=== PATIENT | female | born 1970 | race Caucasian/White ===

== ENCOUNTER → 2016-03-09 | Outpatient (CLI) | payer BC, OTHER ==
[~2016-03-09] MED LIST: ACET-1256 PO; CITA20TA9 PO; HOME1TAB18 PO; IBUP-1050 PO; JET ALERT PO; LEVO25TA PO; MELO15TA10 PO; MULT-506 PO; RXC5 PO; TRAM-10 PO
[2016-03-09 14:13] LABS: BASO % 0.6 %; BASO ABS # 0.06 K/uL (0-0.2); COMPLETE YES; EOS % 2.2 %; HEMATOCRIT 43.8 % (37-47); IG% 0.8 %; LYMPH % 27.2 %; LYMPH ABS # 2.85 K/uL (1.2-3.4); MEAN CELL VOLUME 93.2 fL (80-100); MEAN CORPUSCULAR HEMOGLOBIN 32.6 pg (25-34); MEAN CORPUSCULAR HGB CONC 34.9 g/dl (32-36); MEAN PLATELET VOLUME 9.5 fL (7.4-10.4); MONO % 11.9 %; NEUT % 57.3 %; PLATELET COUNT 297 K/uL (130-400); WHITE BLOOD COUNT 10.49 K/uL (4.8-10.8)
[2016-03-09 14:22] LABS: ALT/SGPT 27 U/L (12-78); BLOOD UREA NITROGEN 18 mg/dl (7-18); CALCIUM 8.8 mg/dl (8.5-10.1); CARBON DIOXIDE 25 mmol/L (21-32); CHLORIDE 104 mmol/L (98-107); CHOLESTEROL 197 mg/dl (0-200); CREATININE 0.86 mg/dl (0.60-1.20); GLUCOSE 107 mg/dl (70-99); SODIUM 138 mmol/L (136-145); TRIGLYCERIDES 219 mg/dl (0-150); VERY LOW DENSITY LIPOPROT CALC 44 mg/dl
[2016-03-09 14:31] LABS: ALB/GLOB RATIO 0.9 (0.9-2); ALKALINE PHOSPHATASE 77 U/L (45-117); AST/SGOT 14 U/L (15-37); CHOLESTEROL/HDL RATIO 4.2; HDL CHOLESTEROL 47 mg/dl; LDL CHOLESTEROL CALCULATED 106 mg/dl
== END | disposition home or self-care (01) ==
LOC: C.LABSPEC 13:32
PROVIDERS: ATTEND Family Medicine
DX: E78.2 Mixed hyperlipidemia (principal); F39 Unspecified mood [affective] disorder; R45.4 Irritability and anger

== ENCOUNTER → 2016-04-06 | Outpatient (CLI) | payer OTHER ==
[2016-04-06 13:36] LABS: THYROID STIMULATING HORMONE 2.59 uIu/ml (0.300-4.500)
== END | disposition home or self-care (01) ==
LOC: C.LABSPEC 12:50
PROVIDERS: ATTEND Family Medicine
DX: E03.9 Hypothyroidism, unspecified (principal)

== ENCOUNTER → 2016-05-26 | Outpatient (CLI) | payer OTHER ==
--- NOTE | 2016-05-26 16:29 | DIAGNOSTIC IMAGING REPORT ---
CHEST 2 VIEWS ROUTINE CLINICAL HISTORY: M54.16 cough. Preoperative evaluation COMPARISON STUDY: No previous studies for comparison. FINDINGS: The bones soft tissues and hemidiaphragms are normal. The cardiomediastinal silhouette is normal. The lungs are clear. The pulmonary vasculature is normal. IMPRESSION: Negative chest. Electronically signed by: Lorenzo Sommer M.D. 05/26/2016 4:27 PM Dictated Date/Time: 05/26/2016 4:26 PM
[2016-05-26 16:56] LABS: BASO % 0.7 %; BASO ABS # 0.05 K/uL (0-0.2); COMPLETE YES; EOS % 4.8 %; HEMATOCRIT 39.5 % (37-47); IG% 0.3 %; LYMPH % 28.6 %; LYMPH ABS # 2.13 K/uL (1.2-3.4); MEAN CELL VOLUME 91.4 fL (80-100); MEAN CORPUSCULAR HEMOGLOBIN 31.9 pg (25-34); MEAN CORPUSCULAR HGB CONC 34.9 g/dl (32-36); MONO % 11.1 %; NEUT % 54.5 %; PLATELET COUNT 301 K/uL (130-400); RED BLOOD COUNT 4.32 M/uL (4.2-5.4); WHITE BLOOD COUNT 7.46 K/uL (4.8-10.8)
[2016-05-26 17:08] LABS: URINE APPEARANCE CLOUDY (CLEAR); URINE BILIRUBIN NEG (NEG); URINE COLOR YELLOW; URINE EPITHELIAL CELL AUTO >30 /lpf (0-5); URINE NITRITE NEG (NEG); URINE PH 5.5 (4.5-7.5); URINE SPECIFIC GRAVITY 1.024 (1.000-1.030); UROBILINOGEN NEG (NEG)
[2016-05-26 17:12] LABS: MANUAL MICROSCOPIC REQUIRED? NO; REVIEW REQ? NO
[2016-05-26 17:23] LABS: BLOOD UREA NITROGEN 16 mg/dl (7-18); BUN/CREATININE RATIO 15.6 (10-20); CALCIUM 9.1 mg/dl (8.5-10.1); CARBON DIOXIDE 25 mmol/L (21-32); CHLORIDE 108 mmol/L (98-107); GLUCOSE 104 mg/dl (70-99); POTASSIUM 3.9 mmol/L (3.5-5.1); SODIUM 141 mmol/L (136-145)
== END | disposition home or self-care (01) ==
LOC: C.RAD 15:40
PROVIDERS: ATTEND Orthopaedic Surgery Orthopaedic Surgery of the Spine
DX: M54.16 Radiculopathy, lumbar region (principal)

== ENCOUNTER 2016-06-05 10:01 | Inpatient (IN) | payer OTHER ==
[2016-05-29 07:41] VITALS: BMI 48.0
[~2016-06-05] VITALS: Ht 147.3 cm; Wt 105.5 kg
[2016-06-05] VITALS (8 sets, daily range): BP systolic 109–134; BP diastolic 66–86; PULSE 74–83; TEMP 36.5–36.8; O2SAT 98–100; Ht 147.3 cm; Wt 105.5 kg
--- NOTE | 2016-06-05 07:20 | History & Physical Bridge Note ---
H&P Re-Evaluation Bridge Note: I have examined the patient, reviewed the History & Physical and in the interval since the performance of the History & Physical I have noted the following changes of clinical significance: No changes noted
[~2016-06-05 10:01] MED LIST changes: -ACET-1256 PO; +LACTATED RINGER'S 1000ML 1,000 ML IV SCH; +LACTATED RINGER'S 1000ML 500 ML IV ONE; -RXC5 PO
[2016-06-05] MEDS ORDERED: ACET-1256 PO (10:27)
[2016-06-05] MEDS ORDERED: FENTANYL CITRATE INJ 50 MCG/1 ML 2 ML VIAL ONE ×4 (10:33→13:17)
[2016-06-05] MEDS ORDERED: MIDAZOLAM HCL 1 MG/ML 2ML VIAL ONE (10:33)
--- NOTE | 2016-06-05 10:35 | History and Physical ---
History & Physical Date June 05, 2016. Chief Complaint back and leg pain History of Present Illness The patient is a 46 year old female with complaints of Additional History Hepatic Disease: No Endocrine Disorder: No Kidney Disease: No Hypertension: No Heart Disease: No Bleeding Tendencies: No Infectious Diseases: No Allergies Coded Allergies: No Known Allergies (Unverified , 06/05/16) Home Medications Scheduled Citalopram Hydrobromide (Celexa), 20 MG PO QAM Levothyroxine Sodium (Synthroid), 25 MCG PO QAM Meloxicam (Mobic), 15 MG PO QAM Multivitamin (Multivitamin), 1 TAB PO QAM [Jet Alert], 1 TAB PO Q4H Scheduled PRN Acetaminophen (Tylenol), 4 TAB PO Q6 PRN for Pain Homeopathic Products (Leg Cramp Relief), 2 TAB PO TID PRN for LEG CRAMPS Ibuprofen (Advil), 800-1,000 MG PO Q6H PRN for Pain Tramadol (Ultram), 50 MG PO QAM PRN for Pain Physical Examination Skin: warm/dry, no rash Eyes: normal inspection, EOMI, sclerae normal ENT: normal ENT inspection, pharynx normal Head: normocephalic, atraumatic Neck: supple, no adenopathy, trachea midline Respiratory/Chest: lungs clear, normal breath sounds, no respiratory distress Cardiovascular: regular rate, rhythm, no edema, no murmur Abdomen / GI: normal bowel sounds, non tender Back: normal inspection Extremities: normal inspection, normal range of motion Neurologic/Psych: no motor/sensory deficits, alert, normal reflexes, oriented x 3 Diagnosis spinal stenosis Plan of Treatment decompression fusion L4-S1
[2016-06-05] MEDS ORDERED: CEFAZOLIN IV 2,000 MG/60 ML D5W IV ONE (10:57)
[2016-06-05 11:05] LABS: PREG INTERNAL NEGATIVE QC NEG CLEAR BACKGROUND; PREG INTERNAL POSITIVE QC POS CONTROL LINE
[2016-06-05] MEDS ORDERED: BACITRACIN 50000 UNIT VIAL ONE (11:07)
[2016-06-05] MEDS ORDERED: BUPIVACAINE/EPINEPHRINE 0.5% MPF 1:200,000 30 ML VIAL ONE (11:07)
[2016-06-05] MEDS ORDERED: SODIUM CHLORIDE 0.9% PF 50 ML VIAL ONE (11:07)
[2016-06-05] MEDS ORDERED: HYDROmorphone INJ 2 MG/ML SYR/VIAL ONE ×2 (11:38→13:19)
[2016-06-05] MEDS ORDERED: EpHEDrine SULFATE INJ 50 MG/ML AMP IV PRN (11:45)
[2016-06-05] MEDS ORDERED: PROMETHAZINE HCL INJ 6.25 MG in SODIUM CHLORIDE 0.9% 50ML 50 ML IV PRN (11:45)
[2016-06-05] MEDS ORDERED: HYDROmorphone INJ 1 MG/ML SYR IV PRN (11:45)
[2016-06-05] MEDS ORDERED: ONDANSETRON INJ 2 MG/ML 2 ML VIAL IV PRN ×2 (11:45→13:15)
[2016-06-05] MEDS ORDERED: ATROPINE SULFATE 0.1 MG/ML 5ML SYR IV PRN (11:45)
[2016-06-05] MEDS ORDERED: NEOSTIGMINE METHYLSULFATE 1 MG/ML 10ML VIAL ONE (13:02)
[2016-06-05] MEDS ORDERED: PROPOFOL IV EMULSION 10 MG/ML 20 ML VIAL IV ONE (13:02)
[2016-06-05] MEDS ORDERED: PHENYLEPHRINE 100MCG/ML 5ML SYR ONE (13:02)
[2016-06-05] MEDS ORDERED: ROCURONIUM BROMIDE 10 MG/ML 5 ML VIAL ONE (13:02)
[2016-06-05] MEDS ORDERED: DEXAMETHASONE SOD INJ 4 MG/ML VIAL ONE (13:02)
[2016-06-05] MEDS ORDERED: ONDANSETRON INJ 2 MG/ML 2 ML VIAL ONE (13:02)
[2016-06-05] MEDS ORDERED: EpHEDrine SULFATE 50MG/5ML SYR ONE (13:02)
[2016-06-05] MEDS ORDERED: LIDOCAINE HCL 2% 2 ML VIAL (20MG/ML) ONE (13:02)
[2016-06-05] MEDS ORDERED: GLYCOPYRROLATE INJ 0.2 MG/ML VIAL ONE (13:02)
[2016-06-05] MEDS ORDERED: KETOROLAC TROMETHAMINE 30 MG/ML VIAL ONE (13:02)
[2016-06-05] MEDS ORDERED: FLOSEAL HEMOSTATIC MATRIX 10ML TOP ONE (13:05)
[2016-06-05] MEDS ORDERED: SODIUM CHLORIDE 0.9% 1000ML 1,000 ML IV SCH (13:10)
--- NOTE | 2016-06-05 13:10 | [facility] Operative Report ---
Operative Report Operative Date June 05, 2016. Pre-Operative Diagnosis Lumbar Stenosis Post-Operative Diagnosis same Procedure(s) Performed decomp fusion Surgeon Dr. Dickinson Enterprise Data Architect Surgeon(s) Preethi Schwartz PA-C Estimated Blood Loss 400 Findings stenosis Specimens 0 I attest to the content of the Intraoperative Record and any orders documented therein. Any exceptions are noted below.
[2016-06-05] MEDS ORDERED: ALUMINUM/MAGNESIUM SUSP 30 ML UDC PO PRN (13:15)
[2016-06-05] MEDS ORDERED: BISACODYL 10 MG SUPP PR PRN (13:15)
[2016-06-05] MEDS ORDERED: hydrOXYzine HCL 25 MG TAB PO PRN (13:15)
[2016-06-05] MEDS ORDERED: DO NOT ADMINISTER FLU VACCINE PRN ×3 (13:15)
[2016-06-05] MEDS ORDERED: MAGNESIUM HYDROXIDE SUSP 30 ML UDC PO PRN (13:15)
[2016-06-05] MEDS ORDERED: PROMETHAZINE HCL INJ 12.5 MG in SODIUM CHLORIDE 0.9% 50ML 50 ML IV PRN (13:15)
[2016-06-05] MEDS ORDERED: ACETAMINOPHEN 500 MG TAB PO PRN (13:15)
[2016-06-05] MEDS ORDERED: ACETAMINOPHEN IV 100 ML IV PRN (13:15)
[2016-06-05] MEDS ORDERED: NALOXONE HCL 0.4 MG/1 ML VIAL/CARP IV PRN ×2 (13:15)
[2016-06-05] MEDS ORDERED: LORAZEPAM INJ 0.5 MG in SYRINGE 0.75 ML IV PRN (13:15)
[2016-06-05] MEDS ORDERED: LORAZEPAM 0.5 MG TAB PO PRN (13:15)
[2016-06-05] MEDS ORDERED: FAMOTIDINE 20 MG TAB PO PRN (13:15)
[2016-06-05] MEDS ORDERED: DO NOT ADMINISTER PNEUMOCOCCAL VACCINE PRN ×2 (13:15)
[2016-06-05] MEDS ORDERED: METOCLOPRAMIDE HCL INJ 5 MG/ML 2 ML VIAL IV PRN (13:15)
[2016-06-05] MEDS ORDERED: SOD PHOSPHATE/SOD BIPHOSPHATE ENEMA 132 ML BTL PR PRN (13:15)
--- NOTE | 2016-06-05 13:15 | DIAGNOSTIC IMAGING REPORT ---
LUMBAR SPINE 2 OR 3 VIEW CLINICAL HISTORY: Spinal decompression COMPARISON STUDY: No previous studies for comparison. FINDINGS: 2 intraoperative fluoroscopic spot images were obtained. 28 seconds of fluoroscopic time was utilized. There are postsurgical changes of an L4-5 discectomy and interbody fusion. There is a grade 1 spondylolisthesis of L4 on L5. There are pedicle screws present at the L4, L5, and S1 levels with adjoining spinal rods. IMPRESSION: Postsurgical changes as described above. Electronically signed by: Fred Kelley M.D. 06/05/2016 1:13 PM Dictated Date/Time: 06/05/2016 1:12 PM
[2016-06-05] MEDS: HYDROmorphone HCL 0.5MG/ML 50 ML CASSETTE IV PRN ×4 (13:37→23:12)
[2016-06-05] MEDS: FENTANYL CITRATE INJ 50 MCG/1 ML 2 ML VIAL IV PRN ×2 (13:40→13:54)
--- NOTE | 2016-06-05 14:19 | Anesthesiology Progress Note ---
Anesthesia Post Op Note Date & Time June 05, 2016 at 14:19 Vital Signs Pain Intensity: 5 Vital Signs Past 12 Hours Date Time Temp Pulse Resp B/P Pulse Ox O2 Delivery O2 Flow Rate FiO2 06/05/16 14:15 75 20 127/73 99 Nasal Cannula 4 06/05/16 14:05 36.5 76 14 120/77 99 Nasal Cannula 4 06/05/16 13:55 80 17 130/78 97 Nasal Cannula 4 06/05/16 13:45 82 12 117/84 100 Nasal Cannula 4 06/05/16 13:35 79 15 141/77 100 Nasal Cannula 4 06/05/16 13:26 37.4 88 16 146/87 100 Mask 10 06/05/16 10:27 36.6 82 18 134/86 100 Room Air Notes Mental Status: alert / awake / arousable, participated in evaluation Pt Amnestic to Procedure: Yes Nausea / Vomiting: adequately controlled Pain: adequately controlled Airway Patency, RR, SpO2: stable & adequate BP & HR: stable & adequate Hydration State: stable & adequate Anesthetic Complications: no major complications apparent
[2016-06-05] MEDS: LACTATED RINGER'S 1000ML 1,000 ML IV SCH ×2 (14:38→19:26)
--- NOTE | 2016-06-05 14:59 | OPERATIVE REPORT ---
DATE OF OPERATION: 06/05/2016 PREOPERATIVE DIAGNOSES: Spinal stenosis, spondylolisthesis. POSTOPERATIVE DIAGNOSIS: Same. PROCEDURE PERFORMED: 1. Lumbar decompression, medial facetectomies, foraminotomies L3-4, L4-5, L5-S1. 2. Placement posterior instrumentation using Orthros rods and screws L4-5, L5-S1. 3. Interbody fusion L4-L5. 4. Placement of PEEK cage 12 x 22 mm at L4-L5. 5. Placement of Gema bone grafting and Infuse collagen sponge with OssiMend in the interbody space. SURGEON: Dr. Nito Dickinson. ENTRY LEVEL: Preethi Schwartz PA-C. Due to the complex nature of the procedure, the entire surgery was performed with the drug safety assistant of Preethi Schwartz PA-C. The logistics assistant, under direct supervision, was involved in the actual performance of all aspects of the surgical procedure including hemostasis, tissue retraction and incision, instrument management, patient positioning, and wound closure. ANESTHESIA: General. DISPOSITION: The patient awakened and taken to PACU in stable condition. HISTORY OF PATIENT'S PROBLEMS: This is a 46-year-old female that presents with the above-mentioned diagnosis. After failing an extensive course of nonoperative care, elected to undergo the above-mentioned procedure. Risks, benefits, pros, cons, and alternatives were outlined in detail preoperatively. OPERATION AND FINDINGS: PROCEDURE: The patient was met with preoperatively, the case discussed and all questions were addressed. At that point the patient was taken back to operative suite and after undergoing successful general intubation by department of anesthesia was placed in prone position on Sukhi table atop Noe frame. All bony prominences were well padded and the eyes were inspected to ensure there was no external pressure placed upon them. At this point, lumbar spine was prepped and draped in normal sterile fashion. Sharp dissection with the assistance of Bovie cautery performed down to and exposing the lamina and transverse processes of L4-L5 and sacral ala bilaterally. From a caudal to cephalad fashion, complete laminectomy of L5, L4, partial laminectomy of L3 was performed to address severe lateral recess foraminal disease most severe at the 4-5 level. After complete decompression, pedicle screws were placed in L4, L5 and S1 levels bilaterally with the assistance of fluoroscopy and appropriately sized delon provisionally placed. Through a transforaminal approach on the right, a complete discectomy of L4-L5 was performed, endplates curetted to subcortical bleeding bone and a 12 x 22 mm PEEK cage filled with Gema bone grafting tapped into position. The rods were locked into final position bilaterally, crosslink locked into place. A 7 flat OJ drain inserted. Incision was closed with 1-0 Vicryl in the fascia, 2-0 Vicryl subcutaneously, 4-0 for final skin closure. Steri-Strips and sterile dressing placed. The patient was awakened and taken to PACU in stable condition. I attest to the content of the Intraoperative Record and any orders documented therein. Any exceptio ns are noted below.
[2016-06-05] MEDS: DEXAMETHASONE INJ 6 MG in SYRINGE 0 ML IV SCH (17:33)
[2016-06-05] MEDS: CEFAZOLIN IV 2,000 MG in DEXTROSE 5% 50ML 50 ML IV SCH (17:33)
[2016-06-05] MEDS: DOCUSATE SODIUM/SENNA 50/8.6MG TAB PO SCH (20:38)
[2016-06-06] MEDS: DEXAMETHASONE INJ 6 MG in SYRINGE 0 ML IV SCH ×2 (01:54→09:35)
[2016-06-06] MEDS: LACTATED RINGER'S 1000ML 1,000 ML IV SCH (01:54)
[2016-06-06] MEDS: CEFAZOLIN IV 2,000 MG in DEXTROSE 5% 50ML 50 ML IV SCH (01:54)
[2016-06-06 03:15] VITALS: BP 102/62; PULSE 63; TEMP 36.9; O2SAT 99
[2016-06-06] MEDS ORDERED: CEFAZOLIN 2000 MG/60 ML D5W IV SCH (06:00)
[2016-06-06] MEDS ORDERED: DC PCA SCH (06:00)
[2016-06-06] MEDS: LEVOTHYROXINE 25 MCG TAB PO SCH (06:09)
[2016-06-06 06:11] LABS: BASO % 0.1 %; BASO ABS # 0.01 K/uL (0-0.2); COMPLETE YES; HEMATOCRIT 33.8 % (37-47); IG% 0.4 %; LYMPH % 4.7 %; LYMPH ABS # 0.85 K/uL (1.2-3.4); MEAN CELL VOLUME 93.9 fL (80-100); MEAN CORPUSCULAR HEMOGLOBIN 31.1 pg (25-34); MEAN CORPUSCULAR HGB CONC 33.1 g/dl (32-36); MONO % 6.5 %; NEUT % 88.3 %; PLATELET COUNT 253 K/uL (130-400); WHITE BLOOD COUNT 18.16 K/uL (4.8-10.8)
[2016-06-06] MEDS ORDERED: NURSING DECISION MEDICATION ORDER SCH (06:30)
[2016-06-06 06:46] LABS: BUN/CREATININE RATIO 12.9 (10-20); CALCIUM 8.1 mg/dl (8.5-10.1); CREATININE 0.86 mg/dl (0.60-1.20); POTASSIUM 4.1 mmol/L (3.5-5.1)
[2016-06-06 07:25] VITALS: BP 115/74; PULSE 70; TEMP 36.8; O2SAT 98
--- NOTE | 2016-06-06 08:11 | PROGRESS NOTE ---
DATE: 06/06/2016 HISTORY OF PRESENT ILLNESS: Postop day 1. Back pain controlled. Leg pain improved. Vital signs stable. T-max 36.9. OJ drained 95 mL. Hematocrit this a.m. is 33.8. PHYSICAL EXAMINATION: On exam, she is sitting up in bed, has good strength to testing, and appears comfortable. ASSESSMENT: Status post lumbar decompression and fusion. PLAN: At this time, we will initiate physical therapy, advance her bowel regimen and anticipate home either Sunday or .
[2016-06-06] MEDS: CITALOPRAM 20 MG TAB PO SCH (08:33)
--- NOTE | 2016-06-06 09:43 | Anesthesiology Progress Note ---
Anesthesia Post Op Note Date & Time June 06, 2016 at 09:42 Vital Signs Pain Intensity: 2.0 Vital Signs Past 12 Hours Date Time Temp Pulse Resp B/P Pulse Ox O2 Delivery O2 Flow Rate FiO2 06/06/16 07:30 Room Air 06/06/16 07:25 36.8 70 16 115/74 98 Room Air 06/06/16 03:15 36.9 63 16 102/62 99 Room Air 06/05/16 23:35 Room Air 06/05/16 22:55 36.6 74 16 109/66 98 Room Air Notes Mental Status: alert / awake / arousable, participated in evaluation Pt Amnestic to Procedure: Yes Nausea / Vomiting: adequately controlled Pain: adequately controlled Airway Patency, RR, SpO2: stable & adequate BP & HR: stable & adequate Hydration State: stable & adequate Anesthetic Complications: no major complications apparent
[2016-06-06 11:40] VITALS: BP 118/76; PULSE 94; TEMP 36.6; O2SAT 97
[2016-06-06 15:21] VITALS: BP 124/69; PULSE 79; TEMP 36.8; O2SAT 99
[2016-06-06] MEDS: OXYCODONE HCL IR 5 MG TAB (IMMEDIATE RELEASE) PO PRN (16:52)
[2016-06-06] MEDS: DOCUSATE SODIUM/SENNA 50/8.6MG TAB PO SCH (20:46)
[2016-06-06 22:58] VITALS: BP 117/69; PULSE 81; TEMP 37; O2SAT 97
[2016-06-07] MEDS: OXYCODONE HCL IR 5 MG TAB (IMMEDIATE RELEASE) PO PRN ×4 (00:20→21:09)
[2016-06-07] MEDS: LEVOTHYROXINE 25 MCG TAB PO SCH (05:59)
[2016-06-07] MEDS: POLYETHYLENE (MIRALAX) 17 GM PACK PO SCH ×4 (05:59→23:44)
[2016-06-07 06:44] VITALS: BP 133/84; PULSE 88; TEMP 37.2; O2SAT 98
[2016-06-07 07:11] VITALS: BP 118/82; PULSE 79; TEMP 36.7; O2SAT 99
[2016-06-07] MEDS: HYDROmorphone INJ 1 MG/ML SYR IV PRN ×2 (07:23→17:07)
[2016-06-07] MEDS: CITALOPRAM 20 MG TAB PO SCH (07:23)
[2016-06-07] MEDS ORDERED: RXC5 PO (09:26)
--- NOTE | 2016-06-07 09:27 | Discharge Instructions ---
Discharge Instructions Date of Service June 07, 2016. Admission Reason for Admission: Lumbar Spinal Stenosis Discharge Discharge Diagnosis / Problem: stenosis Discharge Goals Goal(s): Improve function Activity Recommendations Activity Limitations: per Instructions/Follow-up section . Instructions / Follow-Up Instructions / Follow-Up ACTIVITY RECOMMENDATIONS: SELF CARE INSTRUCTIONS AFTER THORACIC/LUMBAR FUSIONS 1. You may walk to your tolerance. It is good exercise for your legs and back. Expect some back and intermittent leg aches and pains. 2. You may perform "counter-top" level activities (make a sandwich, maria a with a project, etc.). 3. No bending or lifting of more than 10 pounds or back twisting of any nature (roll like a log when turning in bed). 4. You may ride in a car for 20-30 minutes at a time. No driving until after your first visit with your doctor. 5. Frequent changes of position and restricting sitting to 30 minutes at a time will help limit the amount of back spasms and stiffness you may experience. 6. You may discontinue the use of ambulatory aids (cane, crutches, etc.) once your strength and confidence allow. 7. You may culinary arts instructor the shower and let water strike your incision when you arrive home at least once daily. Do not take a tub bath, sit in a hot tub or go into a swimming pool until after your first recheck in the office. SPECIAL CARE INSTRUCTIONS: VERY IMPORTANT TO READ AND REVIEW A. Your surgical incision has been closed with a cosmetic suture under the skin that will dissolve in about 6 weeks. In 14 days, you can use a pair of clean scissors and cut the suture that is left outside of the skin at the ends of your incision. 1. The small skin tapes can be removed 7 days after surgery if they have not fallen off by that point. 2. You may keep the wound open to air as much as possible to promote healing after post-op day number 5 unless told otherwise by your doctor. 3. If you think the wound looks like it is becoming infected (redness or worsening drainage) and/or you are experiencing fever, chill or worsening back pain and muscle spasms, contact the office so that we may evaluate you as soon as possible. B. Complications are uncommon, but please contact us if you have any signs or symptoms of: 1. wound infection (fever higher than 102.5 degrees F, redness, separation of wound, drainage, or increasing pain from the incision) 2. blood clots in legs (pain, swelling, redness and warmth in legs) 3. urinary tract infection (fever higher than 102.5 degrees F, burning upon urination or increased frequency of urination) 4. nerve problems (inability to walk on your toes or heels, numbness, loss of bowel or bladder control) 5. any other symptoms that concern you C. Please call the office at if you have any concerns or questions about your operation or recovery. D. No smoking! Smoking drastically decreases the chance of a solid fusion. E. Do not take any anti-inflammatory medications (Indocin, Advil, Motrin, Aspirin, Naprosyn, etc.) as these may inhibit the chance of a solid fusion. Tylenol is okay to take for pain. MANAGING PAIN AFTER SPINAL SURGERY 1. Narcotic medication is intended for short-term use and will be provided for surgical pain. Surgical pain usually lasts for a period of 4-6 weeks. Narcotic medication includes Percocet, Vicodin, Darvocet, Tylenol #3 or Lortab. 2. Longer-term pain is more appropriately treated with non-narcotic medication such as Tylenol ES. 3. Muscle spasm is not appropriately treated with narcotics. Muscle relaxers such as Soma, Flexeril or Skelaxin can be used along with Tylenol ES. 4. Remember that we all live with some "aches and pains". This is not unusual or uncommon after an injury or as we get older. a. Back pain is expected and may include muscle spasms for 4 to 6 weeks after surgery. The pain should gradually improve. If the pain worsens for no apparent reason, please contact the office. b. Intermittent leg pain may also be experienced and should not be concerned about unless it worsens for no apparent reason. If so, please contact the office. 5. We will provide appropriate medication within the normal guidelines of their prescribed use. We will also be very cautious and aware of potential abuse and extended duration of patients' medication needs. a. Pain medications are for your comfort and to assist with sleep and rest so that the tissue can heal. They are not provided in order to return to normal activity and should not be used through the day. To do so or worsening pain at night can result from ongoing tissue damage and development of tolerance to the prescribed medicine. 6. Please allow 2-3 days to process refills. Prescriptions will not be mailed but must be picked up at the office. FOLLOW UP VISIT: Keep your scheduled follow-up appointment. Any questions, please call the office at . Current Hospital Diet Patient's current hospital diet: Regular Diet Discharge Diet Recommended Diet: Regular Diet Procedures Procedures Performed: L4-L5, L5-S1 Lumbar Laminectomy, Decompression, Pedicle Screw Fixation, Placement of Interbody Device at L4-L5; L4-L5, L5-S1 Posterolateral Fusion, Application of Gema Allograft, Bone Morphogenetic Protein Pending Studies Studies pending at discharge: no Medical Emergencies . Who to Call and When: Medical Emergencies: If at any time you feel your situation is an emergency, please call 911 immediately. . Non-Emergent Contact Non-Emergency issues call your: Primary Care Provider . "Provider Documentation" section prepared by Nito Dickinson. . VTE Core Measure Inpt VTE Proph given/why not?: Vazquez Villar, SCD's
--- NOTE | 2016-06-07 11:35 | PROGRESS NOTE ---
DATE: 06/07/2016 Postop day #2. Back pain is controlled. Leg pain improved. Vital signs stable. T-max 37.2. OJ drained 50 mL. Hematocrit this a.m. is 33.8. OBJECTIVE: She has good strength to testing. Appears comfortable. ASSESSMENT: Status post lumbar decompression and fusion. PLAN: At this time, we will maintain the OJ drain until tomorrow morning. At that point, anticipate discharge home. The patient understands and agrees.
[2016-06-07 15:04] VITALS: BP 107/67; PULSE 100; TEMP 36.9; O2SAT 97
[2016-06-07] MEDS: DOCUSATE SODIUM/SENNA 50/8.6MG TAB PO SCH (21:08)
[2016-06-07 23:17] VITALS: BP 111/73; PULSE 98; TEMP 37.1; O2SAT 97
[2016-06-07] MEDS: TRAMADOL HCL 50 MG TAB PO PRN (23:43)
[2016-06-08] MEDS: OXYCODONE HCL IR 5 MG TAB (IMMEDIATE RELEASE) PO PRN ×6 (01:07→23:22)
[2016-06-08] MEDS: LEVOTHYROXINE 25 MCG TAB PO SCH (05:22)
[2016-06-08] MEDS: POLYETHYLENE (MIRALAX) 17 GM PACK PO SCH ×4 (05:22→23:24)
[2016-06-08 07:13] VITALS: BP 118/79; PULSE 88; TEMP 37.1; O2SAT 98
[2016-06-08] MEDS: CITALOPRAM 20 MG TAB PO SCH (08:37)
[2016-06-08 09:42] VITALS: BP 118/79; PULSE 88; TEMP 37.1; O2SAT 98
--- NOTE | 2016-06-08 09:50 | DISCHARGE SUMMARY ---
PRINCIPAL DIAGNOSIS: Spinal stenosis. HOSPITAL COURSE FOLLOWS: On June 05, the patient underwent lumbar decompression and fusion, tolerated this well and taken to the orthopedic floor postoperatively. Postop day #1, she was up and ambulatory, progressed to postop day #2. Postop day #3, pain was well controlled. OJ drain decreased appropriately. Subsequently discharged home. Discharge orders and instructions found on the chart for further review.
[2016-06-08] MEDS: TRAMADOL HCL 50 MG TAB PO PRN (13:00)
[2016-06-08 15:19] VITALS: BP 129/80; PULSE 95; TEMP 36.6; O2SAT 99
--- NOTE | 2016-06-08 17:09 | Anesthesiology Progress Note ---
Anesthesia Progress Note Date of Service June 08, 2016. Progress Notes This is a 46 y/o w morbidly obese female s/p lumbar spine surgery,now presenting for I & D of the same and removal of drains.PMHx is sig. for tobacco smoking 2 PPD x 23 years,quit 1 year ago.Also, anemia and hypothyroidism.Discussed anesthesia w/pt ,risks vs benefits ,all questions answered.Informed consent obtained.
[2016-06-08] MEDS: HYDROmorphone INJ 1 MG/ML SYR IV PRN (20:33)
[2016-06-08] MEDS: DOCUSATE SODIUM/SENNA 50/8.6MG TAB PO SCH (20:34)
[2016-06-08 23:44] VITALS: BP 133/88; PULSE 88; TEMP 36.6; O2SAT 95
[2016-06-09] MEDS: HYDROmorphone INJ 1 MG/ML SYR IV PRN ×2 (00:54→03:59)
[2016-06-09] MEDS: POLYETHYLENE (MIRALAX) 17 GM PACK PO SCH ×2 (05:42→12:00)
[2016-06-09] MEDS: LEVOTHYROXINE 25 MCG TAB PO SCH (05:43)
[2016-06-09] MEDS ORDERED: EpHEDrine SULFATE INJ 50 MG/ML AMP IV PRN (06:45)
[2016-06-09] MEDS ORDERED: MoRPHine SULFATE 10 MG/ML CARP/VIAL IV PRN (06:45)
[2016-06-09] MEDS ORDERED: ATROPINE SULFATE 0.1 MG/ML 5ML SYR IV PRN (06:45)
[2016-06-09] MEDS ORDERED: ONDANSETRON INJ 2 MG/ML 2 ML VIAL IV PRN (06:45)
[2016-06-09] MEDS ORDERED: BUPIVACAINE/EPINEPHRINE 0.5% MPF 1:200,000 30 ML VIAL ONE (06:56)
[2016-06-09] MEDS ORDERED: BACITRACIN 50000 UNIT VIAL ONE ×2 (06:56→07:54)
[2016-06-09] MEDS ORDERED: LIDOCAINE HCL 2% 2 ML VIAL (20MG/ML) ONE (07:07)
[2016-06-09] MEDS ORDERED: NEOSTIGMINE METHYLSULFATE 1 MG/ML 10ML VIAL ONE (07:07)
[2016-06-09] MEDS ORDERED: MIDAZOLAM HCL 1 MG/ML 2ML VIAL ONE (07:07)
[2016-06-09] MEDS ORDERED: GLYCOPYRROLATE INJ 0.2 MG/ML VIAL ONE (07:07)
[2016-06-09] MEDS ORDERED: DEXAMETHASONE SOD INJ 4 MG/ML VIAL ONE (07:07)
[2016-06-09] MEDS ORDERED: ONDANSETRON INJ 2 MG/ML 2 ML VIAL ONE (07:07)
[2016-06-09] MEDS ORDERED: FENTANYL CITRATE INJ 50 MCG/1 ML 2 ML VIAL ONE ×2 (07:07→08:45)
[2016-06-09] MEDS ORDERED: PROPOFOL IV EMULSION 10 MG/ML 20 ML VIAL IV ONE (07:07)
[2016-06-09] MEDS ORDERED: ROCURONIUM BROMIDE 10 MG/ML 5 ML VIAL ONE (07:07)
--- NOTE | 2016-06-09 07:13 | History & Physical Bridge Note ---
H&P Re-Evaluation Bridge Note: I have examined the patient, reviewed the History & Physical and in the interval since the performance of the History & Physical I have noted the following changes of clinical significance: No changes noted retained drain, plan for open removal
--- NOTE | 2016-06-09 07:14 | Orthopedic Progress Note ---
Orthopedic Progress Note Date of Service June 09, 2016. Subjective Additional Notes: Progress note from 06/08/16. Was asked by Dr Dickinson to attempt to pull drain from L-spine as NS states they were unable to get it out, Objective OJ drain in place, dressing in place. Incision benign. Pt asked to sit bedside and forward flex, steady pressure applied to drain, pt denied pain. Drain appeared to be coming out but then broke ~ 2-3 cm on to the white part. Drained saved in biohazard bag. New dressing applied. Pt informed. I would speak to Dr Dickinson but pt likely to require trip to OR to remove retained drain. Date Time Temp Pulse Resp B/P Pulse Ox O2 Delivery O2 Flow Rate FiO2 06/08/16 23:44 36.6 88 20 133/88 95 Room Air 06/08/16 23:15 Room Air 06/08/16 15:49 Room Air 06/08/16 15:19 36.6 95 18 129/80 99 Room Air 06/08/16 09:42 37.1 88 16 98 Room Air 06/08/16 08:20 Room Air 06/08/16 07:13 37.1 88 16 118/79 98 Room Air Assessment & Plan Assessment: 46 yo POD #3 s/p L-spine surgery with broken retained OJ drain. Plan: Will discuss with Dr Dickinson.
[2016-06-09] MEDS ORDERED: CEFAZOLIN IV 2,000 MG/60 ML D5W IV ONE (07:18)
[2016-06-09] MEDS ORDERED: SUCCINYLCHOLINE CHLORIDE 20 MG/ML 10 ML VIAL IV ONE (07:52)
--- NOTE | 2016-06-09 08:05 | [facility] Operative Report ---
Operative Report Operative Date June 09, 2016. Pre-Operative Diagnosis Lumbar Stenosis Post-Operative Diagnosis same Surgeon Dr. Dickinson Web Search Evaluator Surgeon(s) Preethi Schwartz PA-C Estimated Blood Loss 400 Findings drain Specimens 0 I attest to the content of the Intraoperative Record and any orders documented therein. Any exceptions are noted below.
--- NOTE | 2016-06-09 08:26 | OPERATIVE REPORT ---
DATE OF OPERATION: 06/09/2016 PREOPERATIVE DIAGNOSIS: Retained lumbar drain. POSTOPERATIVE DIAGNOSIS: Same. PROCEDURE PERFORMED: Open removal of lumbar drain fragment. SURGEON: Dr. Nito Dickinson. COMPOSITE BOND TECHNICIAN: Rivera Mathis PA-C. Due to the complex nature of the procedure, the entire surgery was performed with the psych assistant of Rivera Mathis PA-C. The pest controller assistant, under direct supervision, was involved in the actual performance of all aspects of the surgical procedure including hemostasis, tissue retraction and incision, instrument management, patient positioning, and wound closure. ANESTHESIA: General. DISPOSITION: The patient awakened and taken to PACU in stable condition. PROCEDURE: The patient was met with preoperatively, the case discussed and all questions were addressed. At that point the patient was taken back to operative suite, we did verify drain fragment as being in the midline via fluoroscopy. Subsequently, after sterile prepping and draping, we opened the lumbar incision, easily retained the drain fragment and then explored the entire incision to ensure all loose fragments were addressed. We then copiously irrigated with 2 liters of antibiotic solution, washed out any retained hematoma. After this was complete, the incision was then closed with 1-0 Vicryl in the fascia, 2-0 Vicryl subcutaneously, 4-0 Monocryl for final skin closure. Steri-Strips and sterile dressing was placed. The patient was awakened and taken to PACU in stable condition. I attest to the content of the Intraoperative Record and any orders documented therein. Any exceptio ns are noted below.
[2016-06-09] MEDS: FENTANYL CITRATE INJ 50 MCG/1 ML 2 ML VIAL IV PRN ×3 (08:40→08:55)
--- NOTE | 2016-06-09 08:52 | PROGRESS NOTE ---
DATE: 06/09/2016 DATE: 06/09/2016. Again she had retained lumbar drain fragment. This was removed without difficulty. The patient is otherwise doing well. Leg symptoms improved. Back pain controlled and is planning to be discharged home today.
[2016-06-09 09:40] VITALS: BP 118/97; PULSE 90; TEMP 37; O2SAT 99
[2016-06-09] MEDS: OXYCODONE HCL IR 5 MG TAB (IMMEDIATE RELEASE) PO PRN ×2 (10:07→14:06)
[2016-06-09] MEDS: CITALOPRAM 20 MG TAB PO SCH (10:07)
[2016-06-09 10:08] VITALS: BP 104/68; PULSE 97; O2SAT 95
[2016-06-09 10:09] VITALS: BP 104/68; PULSE 97; TEMP 37; O2SAT 95
[2016-06-09 10:45] VITALS: BP 106/69; PULSE 85; TEMP 37.1; O2SAT 95
--- NOTE | 2016-06-09 10:52 | Anesthesiology Progress Note ---
Anesthesia Post Op Note Date & Time June 09, 2016 at 10:52 Vital Signs Vital Signs Past 12 Hours Date Time Temp Pulse Resp B/P Pulse Ox O2 Delivery O2 Flow Rate FiO2 06/09/16 10:45 37.1 85 18 106/69 95 Room Air 06/09/16 10:09 37.0 97 18 95 Room Air 06/09/16 10:08 97 18 104/68 95 Room Air 06/09/16 09:40 99 Nasal Cannula 06/09/16 09:40 37.0 90 20 118/97 99 Nasal Cannula 2.0 06/09/16 09:25 123/85 06/09/16 09:22 87 21 06/09/16 09:22 86 21 98 06/09/16 09:21 37.1 06/09/16 09:20 139/80 06/09/16 09:17 85 21 06/09/16 09:17 85 21 98 06/09/16 09:16 90 18 06/09/16 09:16 90 18 98 06/09/16 09:15 139/79 06/09/16 09:11 95 17 06/09/16 09:11 95 17 97 06/09/16 09:10 87 21 06/09/16 09:10 86 21 138/77 95 06/09/16 09:05 89 20 151/82 96 06/09/16 09:05 89 20 06/09/16 09:04 92 17 96 06/09/16 09:04 91 17 06/09/16 09:00 133/75 06/09/16 08:59 87 20 06/09/16 08:59 88 20 97 06/09/16 08:55 126/79 06/09/16 08:54 90 23 06/09/16 08:54 89 23 96 06/09/16 08:53 92 19 06/09/16 08:53 91 19 97 06/09/16 08:50 139/86 06/09/16 08:48 93 19 06/09/16 08:48 93 19 98 06/09/16 08:45 137/82 06/09/16 08:43 90 14 100 06/09/16 08:43 90 14 06/09/16 08:41 130/79 06/09/16 08:38 95 25 94 06/09/16 08:38 95 25 06/09/16 08:35 124/81 06/09/16 08:33 93 14 06/09/16 08:33 37.6 94 16 115/73 98 Mask 10 06/09/16 08:33 93 14 115/73 97 06/08/16 23:44 36.6 88 20 133/88 95 Room Air 06/08/16 23:15 Room Air Notes Mental Status: alert / awake / arousable, participated in evaluation Pt Amnestic to Procedure: Yes Nausea / Vomiting: adequately controlled Pain: adequately controlled Airway Patency, RR, SpO2: stable & adequate BP & HR: stable & adequate Hydration State: stable & adequate Anesthetic Complications: no major complications apparent
[2016-06-09 11:41] VITALS: BP 121/72; PULSE 90; O2SAT 94
[2016-06-09 12:47] VITALS: BP 138/81; PULSE 92; TEMP 36.9; O2SAT 95
== END 2016-06-09 14:15 | disposition home or self-care (01) | DRG 460 ==
LOC: ENRESERVDT → ENRESERVTM → C.ACU 10:01 → C.3E 10:50
PROVIDERS: ADMIT Orthopaedic Surgery Orthopaedic Surgery of the Spine; ATTEND Orthopaedic Surgery Orthopaedic Surgery of the Spine
PROC: 0ST20ZZ Resection of Lumbar Vertebral Disc, Open Approach (ICD-10-PCS; principal; 2016-06-05 12:15)
PROC: 3E0U0GB Introduction of Recombinant Bone Morphogenetic Protein into Joints, Open Approach (ICD-10-PCS; principal; 2016-06-05 12:15)
PROC: 0SG30A1 (ICD-10-PCS; principal; 2016-06-05 12:15)
PROC: 0SG00A1 (ICD-10-PCS; principal; 2016-06-05 12:15)
DX: M48.07 Spinal stenosis, lumbosacral region (principal); M43.10 Spondylolisthesis, site unspecified; Z79.899 Other long term (current) drug therapy

== ENCOUNTER 2016-06-18 20:58 | Emergency (ER) | payer OTHER ==
[~2016-06-18] VITALS: Ht 147.3 cm; Wt 101.1 kg
[~2016-06-18 20:58] MED LIST changes: +ACET-1256 PO; -IBUP-1050 PO; -LACTATED RINGER'S 1000ML 1,000 ML IV SCH; -LACTATED RINGER'S 1000ML 500 ML IV ONE; -MELO15TA10 PO; +RXC5 PO
[2016-06-18 21:00] VITALS: TEMP 37; Ht 147.3 cm; Wt 101.1 kg
[2016-06-18 21:34] LABS: BASO % 0.8 %; BASO ABS # 0.11 K/uL (0-0.2); COMPLETE YES; EOS % 8.4 %; HEMATOCRIT 40.2 % (37-47); IG% 1.4 %; LYMPH % 25.2 %; LYMPH ABS # 3.68 K/uL (1.2-3.4); MEAN CELL VOLUME 92.6 fL (80-100); MEAN CORPUSCULAR HEMOGLOBIN 31.8 pg (25-34); MEAN CORPUSCULAR HGB CONC 34.3 g/dl (32-36); MEAN PLATELET VOLUME 8.7 fL (7.4-10.4); MONO % 8.1 %; NEUT % 56.1 %; PLATELET COUNT 431 K/uL (130-400); RED BLOOD COUNT 4.34 M/uL (4.2-5.4); WHITE BLOOD COUNT 14.61 K/uL (4.8-10.8)
--- NOTE | 2016-06-18 21:42 | EMERGENCY ROOM VISIT NOTE ---
History Report prepared by Shima: Jan Tello Under the Supervision of: Dr. Rolo Conway D.O. First contact with patient: 21:08 Chief Complaint: WOUND INFECTION Stated Complaint: SURGERY 06-05 & 06-09,BUMP ON INCISION W/REDNESS History of Present Illness The patient is a 46 year old female who presents to the Emergency Room with complaints of a worsening/spreading infection around a recent surgical site that the patient first noticed 10 days prior to arrival. The patient states that she had a procedure done on the first june, 14 days prior to arrival. When she went to have the drainage tube removed it snapped and she had to have the rest taken out last , 10 days ago, in the OR. After this procedure the patient started to notice the swelling. The patient was on a steroid, but recently stopped. She has not been on any antibiotics. Source of History: patient Onset: 10 days [employer] Position: back (lower) Quality: other (Infection) Timing: worsening (spreading) Review of Systems See HPI for pertinent positives & negatives. A total of 10 systems reviewed and were otherwise negative. Past Medical & Surgical Medical Problems: (1) Lumbar stenosis with neurogenic claudication Family History Cancer Diabetes mellitus Gallbladder disease Heart disease Hypertension Kidney disease Seizures Social History Smoking Status: Former Smoker Drug Use: none Marital Status: single Housing Status: lives alone Occupation Status: employed Current/Historical Medications Scheduled Citalopram Hydrobromide (Celexa), 20 MG PO QAM Levothyroxine Sodium (Synthroid), 25 MCG PO QAM Multivitamin (Multivitamin), 1 TAB PO QAM Scheduled PRN Acetaminophen (Tylenol), 4 TAB PO Q6 PRN for Pain Homeopathic Products (Leg Cramp Relief), 2 TAB PO TID PRN for LEG CRAMPS Allergies Coded Allergies: Oxycodone (Verified Allergy, Mild, rash and itching, 06/18/16) Physical Exam Vital Signs Date Time Temp Pulse Resp B/P Pulse Ox O2 Delivery O2 Flow Rate FiO2 06/18/16 22:44 96 129/83 100 Room Air 06/18/16 22:26 88 22 123/98 100 Room Air 06/18/16 21:00 37.0 103 20 133/94 98 Room Air Physical Exam GENERAL: Patient is awake, alert, and in no acute distress. Patient is resting comfortably and showing no signs of anxiety EYES: The conjunctivae are clear. The pupils are round and reactive. EARS, NOSE, MOUTH AND THROAT: The nose is without any evidence of any deformity. Mucous membranes are moist tongue is midline NECK: The neck is nontender and supple. RESPIRATORY: Normal respiratory effort is noted there is no evidence of wheezing rhonchi or rales CARDIOVASCULAR: Regular rate and rhythm noted there no murmurs rubs or gallops normal S1 normal S2 GASTROINTESTINAL: The abdomen is soft. Bowel sounds are present in all quadrants. Abdomen is nontender PELVIS: The Pelvis is stable. No tenderness to palpation is noted. BACK: There is an operative site noted over the lumbar spine. There is no erythema, drainage or dehicince, appreciated. There is fullness over the superior aspect of the surgical site. No warmth noted. MUSCULOSKELETAL/EXTREMITIES: There is no evidence of gross deformity full range of motion is noted in the hips and shoulders SKIN: There is no obvious evidence of any rash. There are no petechiae, pallor or cyanosis noted. NEUROLOGIC: Patient is awake alert and oriented x3. Medical Decision & Procedures ER Provider Diagnostic Interpretation: Radiology results as stated below per my review and radiologist interpretation: ULTRASOUND OF THE LOWER BACK CLINICAL HISTORY: swelling over lumbar surgery site Right COMPARISON STUDY: None. FINDINGS: Increase echogenicity within the subcutaneous fat within the lower lumbar region. There is also a 10.1 x 2.2 x 3.0 cm subcutaneous slightly complex fluid collection deep to the incision. IMPRESSION: A 10.1 x 3.0 x 2.2 cm slightly complex fluid collection deep to the lumbar incision. This favors a postoperative seroma or hematoma. An abscess could also have a similar appearance in the appropriate clinical setting. Electronically signed by: Phil Kincaid M.D. 06/18/2016 10:22 PM Dictated Date/Time: 06/18/2016 10:21 PM Laboratory Results 06/18/16 21:21 Red Blood Count 4.34, Mean Corpuscular Volume 92.6, Mean Corpuscular Hemoglobin 31.8, Mean Corpuscular Hemoglobin Concent 34.3, Mean Platelet Volume 8.7, Neutrophils (%) (Auto) 56.1, Lymphocytes (%) (Auto) 25.2, Monocytes (%) (Auto) 8.1, Eosinophils (%) (Auto) 8.4, Basophils (%) (Auto) 0.8, Neutrophils # (Auto) 8.22, Lymphocytes # (Auto) 3.68, Monocytes # (Auto) 1.18, Eosinophils # (Auto) 1.22, Basophils # (Auto) 0.11 06/18/16 21:21 Test 06/18/16 21:21 White Blood Count 14.61 K/uL (4.8-10.8) Red Blood Count 4.34 M/uL (4.2-5.4) Hemoglobin 13.8 g/dL (12.0-16.0) Hematocrit 40.2 % (37-47) Mean Corpuscular Volume 92.6 fL (80-100) Mean Corpuscular Hemoglobin 31.8 pg (25-34) Mean Corpuscular Hemoglobin Concent 34.3 g/dl (32-36) Platelet Count 431 K/uL (130-400) Mean Platelet Volume 8.7 fL (7.4-10.4) Neutrophils (%) (Auto) 56.1 % Lymphocytes (%) (Auto) 25.2 % Monocytes (%) (Auto) 8.1 % Eosinophils (%) (Auto) 8.4 % Basophils (%) (Auto) 0.8 % Neutrophils # (Auto) 8.22 K/uL (1.4-6.5) Lymphocytes # (Auto) 3.68 K/uL (1.2-3.4) Monocytes # (Auto) 1.18 K/uL (0.11-0.59) Eosinophils # (Auto) 1.22 K/uL (0-0.5) Basophils # (Auto) 0.11 K/uL (0-0.2) RDW Standard Deviation 45.6 fL (36.4-46.3) RDW Coefficient of Variation 13.5 % (11.5-14.5) Immature Granulocyte % (Auto) 1.4 % Immature Granulocyte # (Auto) 0.20 K/uL (0.00-0.02) Erythrocyte Sedimentation Rate 45 mm/hr (0-21) Anion Gap 11.0 mmol/L (3-11) Est Creatinine Clear Calc Drug Dose 87.7 ml/min Estimated GFR () 98.0 Estimated GFR (Non- 84.5 BUN/Creatinine Ratio 12.7 (10-20) Calcium Level 9.0 mg/dl (8.5-10.1) Total Bilirubin 0.3 mg/dl (0.2-1) Direct Bilirubin < 0.1 mg/dl (0-0.2) Aspartate Amino Transf (AST/SGOT) 15 U/L (15-37) Alanine Aminotransferase (ALT/SGPT) 31 U/L (12-78) Alkaline Phosphatase 79 U/L (45-117) C-Reactive Protein 0.83 mg/dl (0-0.29) Total Protein 7.8 gm/dl (6.4-8.2) Albumin 3.5 gm/dl (3.4-5.0) Lipase 185 U/L (73-393) Laboratory results per my review. ED Course 2110: The patient was evaluated in room A12B. A complete history and physical examination were performed. 2246: I discussed the case with Dr. Teena Shahid, he will see the patient in his office this week. 2253: Upon reevaluation, the patient is resting in bed. I discussed the results and treatment plan with her. She verbalized agreement of the treatment plan. The patient was discharged home. Medical Decision Differential diagnosis: Etiologies such as cellulitis, abscess, MRSA infection, DVT, necrotizing fasciitis, dermatitis, drug eruption, as well as others were entertained.. Nursing notes reviewed. The patient is a 46-year-old female who presented to the emergency department for an evaluation of postoperative swelling. The patient had lumbar spine surgery last week. She had the drain removed a few days ago. Her family members have noticed that the area is becoming enlarged. The patient did not have any erythema or signs of superficial infection. The patient was found have a fluid collection on ultrasound and I feel this represents a seroma given the removal of the toes operative drain. I discussed the patient's laboratory and radiographic studies with her. I also discussed his case with her primary surgeon. She was encouraged to rest and avoid any strenuous activity. She was encouraged to follow-up with her surgeon this week. She was also encouraged to return to the emergency department immediately if signs of infection develop such as redness fever drainage or if need arises. Consults Time Called: [phone] Consulting Physician: Dr. Teena Shahid Returned Call: [phone] I discussed the case with Dr. Teena Shahid, he will see the patient in his office this week. Impression Primary Impression: Postoperative seroma Scribe Attestation The scribe's documentation has been prepared under my direction and personally reviewed by me in its entirety. I confirm that the note above accurately reflects all work, treatment, procedures, and medical decision making performed by me. Departure Information Dispostion Home / Self-Care Referrals Nhan Comer M.D. ([facility]) (PCP) Forms HOME CARE DOCUMENTATION FORM, IMPORTANT VISIT INFORMATION, WORK / SCHOOL INSTRUCTIONS Patient Instructions [facility] Additional Instructions Follow-up with Dr. Dickinson this week for reevaluation. Continue all medications as prescribed. Rest and avoid any strenuous activity. Problem Qualifiers Primary Impression: Postoperative seroma Surgical complication system/body Area: skin Procedure type: non- dermatologic Qualified Codes: L76.34 - Postprocedural seroma of skin and subcutaneous tissue following other procedure
[2016-06-18 21:56] LABS: ALT/SGPT 31 U/L (12-78); BLOOD UREA NITROGEN 11 mg/dl (7-18); BUN/CREATININE RATIO 12.7 (10-20); CARBON DIOXIDE 23 mmol/L (21-32); CHLORIDE 104 mmol/L (98-107); CREATININE 0.84 mg/dl (0.60-1.20); GLUCOSE 96 mg/dl (70-99); POTASSIUM 3.6 mmol/L (3.5-5.1); SODIUM 138 mmol/L (136-145)
[2016-06-18 21:59] LABS: ALKALINE PHOSPHATASE 79 U/L (45-117); AST/SGOT 15 U/L (15-37); C-REACTIVE PROTEIN 0.83 mg/dl (0-0.29)
--- NOTE | 2016-06-18 22:24 | DIAGNOSTIC IMAGING REPORT ---
ULTRASOUND OF THE LOWER BACK CLINICAL HISTORY: swelling over lumbar surgery site Right COMPARISON STUDY: None. FINDINGS: Increase echogenicity within the subcutaneous fat within the lower lumbar region. There is also a 10.1 x 2.2 x 3.0 cm subcutaneous slightly complex fluid collection deep to the incision. IMPRESSION: A 10.1 x 3.0 x 2.2 cm slightly complex fluid collection deep to the lumbar incision. This favors a postoperative seroma or hematoma. An abscess could also have a similar appearance in the appropriate clinical setting. Electronically signed by: Phil Kincaid M.D. 06/18/2016 10:22 PM Dictated Date/Time: 06/18/2016 10:21 PM
[2016-06-18 22:44] VITALS: BP 129/83; PULSE 96; O2SAT 100
== END 2016-06-18 23:04 | disposition home or self-care (01) ==
LOC: C.EDB 21:00 → C.EDA 23:04
DX: L76.34 Postprocedural seroma of skin and subcutaneous tissue following other procedure (principal); M99.73 Connective tissue and disc stenosis of intervertebral foramina of lumbar region; Z83.3 Family history of diabetes mellitus; Z82.49 Family history of ischemic heart disease and other diseases of the circulatory system; Z82.0 Family history of epilepsy and other diseases of the nervous system; Z87.891 Personal history of nicotine dependence

== ENCOUNTER → 2016-07-07 | Outpatient (CLI) | payer OTHER ==
[~2016-07-07] MED LIST changes: -JET ALERT PO; -RXC5 PO; -TRAM-10 PO
[2016-07-07 14:11] LABS: ALT/SGPT 25 U/L (12-78); BLOOD UREA NITROGEN 13 mg/dl (7-18); BUN/CREATININE RATIO 17.1 (10-20); CARBON DIOXIDE 27 mmol/L (21-32); CHLORIDE 105 mmol/L (98-107); CREATININE 0.78 mg/dl (0.60-1.20); GLUCOSE 103 mg/dl (70-99); POTASSIUM 3.9 mmol/L (3.5-5.1); SODIUM 139 mmol/L (136-145)
[2016-07-07 14:21] LABS: ALB/GLOB RATIO 0.7 (0.9-2); ALKALINE PHOSPHATASE 101 U/L (45-117); AST/SGOT 14 U/L (15-37); THYROID STIMULATING HORMONE 0.936 uIu/ml (0.300-4.500)
== END | disposition home or self-care (01) ==
LOC: C.LABSPEC 13:10
PROVIDERS: ATTEND Family Medicine
DX: E03.9 Hypothyroidism, unspecified (principal)

== ENCOUNTER → 2017-01-11 | Outpatient (CLI) | payer OTHER ==
[2017-01-11 18:23] LABS: BASO % 0.7 %; BASO ABS # 0.06 K/uL (0-0.2); COMPLETE YES; EOS % 3.4 %; HEMATOCRIT 40.1 % (37-47); IG% 0.5 %; LYMPH % 31.4 %; LYMPH ABS # 2.77 K/uL (1.2-3.4); MEAN CELL VOLUME 89.5 fL (80-100); MEAN CORPUSCULAR HEMOGLOBIN 32.4 pg (25-34); MEAN CORPUSCULAR HGB CONC 36.2 g/dl (32-36); MEAN PLATELET VOLUME 9.4 fL (7.4-10.4); MONO % 11.8 %; NEUT % 52.2 %; PLATELET COUNT 272 K/uL (130-400); RED BLOOD COUNT 4.48 M/uL (4.2-5.4); WHITE BLOOD COUNT 8.81 K/uL (4.8-10.8)
[2017-01-11 18:42] LABS: ALB/GLOB RATIO 0.7 (0.9-2); ALKALINE PHOSPHATASE 94 U/L (45-117); ALT/SGPT 34 U/L (12-78); AST/SGOT 16 U/L (15-37); BLOOD UREA NITROGEN 16 mg/dl (7-18); BUN/CREATININE RATIO 17.5 (10-20); CALCIUM 8.2 mg/dl (8.5-10.1); CARBON DIOXIDE 23 mmol/L (21-32); CHLORIDE 105 mmol/L (98-107); GLUCOSE 119 mg/dl (70-99); POTASSIUM 3.4 mmol/L (3.5-5.1); SODIUM 134 mmol/L (136-145)
== END | disposition home or self-care (01) ==
LOC: C.LABSPEC 18:03
PROVIDERS: ATTEND Family Medicine
DX: E03.9 Hypothyroidism, unspecified (principal)